=== PATIENT | female | born 1980 | race Caucasian/White ===

== ENCOUNTER 2016-07-03 13:46 | Emergency (ER) | payer MEDICARE, MEDICAID ==
--- NOTE | 2016-07-03 14:50 | EDM.PDOC ---
ED HPI GENERAL MEDICAL PROBLEM - General Chief Complaint: General Stated Complaint: DEHYDRATION,SHORTNESS OF REATH Time Seen by Provider: 07/03/16 14:32 Source of Information: Reports: Patient History Limitations: Reports: No limitations - History of Present Illness INITIAL COMMENTS - FREE TEXT/NARRATIVE: Patient presents with fatigue, cough and concern of dehydration. Two days ago she diagnosed with Influenza A and is now taking Tamiflu, Zithromax and Tessalon pearles. She says she has been sleeping most of the time and hasn't been drinking much fluids; a can of soda and a bottle of water today. She thinks she may have only urinated once today, she has regular stools daily. abdominal Pain Score (Numeric/FACES): 3 - Related Data Allergies Allergy/AdvReac Type Severity Reaction Status Date / Time morphine Allergy Unknown Headache Verified 07/03/16 14:19 ondansetron HCl Allergy Unknown Rash Verified 07/03/16 14:19 [From Zofran (as hydrochloride)] Penicillins Allergy Unknown Hives Verified 07/03/16 14:19 shellfish derived Allergy Unknown Hives Verified 07/03/16 14:19 Home Meds: Home Meds clonazePAM [Clonazepam] 2 mg PO BID 02/11/14 [History] Cyclobenzaprine [Flexeril] 10 mg PO TID PRN #30 tab 08/10/14 [Rx] QUEtiapine Fumarate [Quetiapine Fumarate] 500 mg PO BEDTIME 03/10/16 [History] ALPRAZolam [Alprazolam] 1 mg PO TID PRN 06/10/16 [History] Azithromycin [Zithromax] 1 tab PO DAILY 07/03/16 [History] Oseltamivir Phosphate [IJD: Tamiflu] 1 tab PO DAILY 07/03/16 [History] Past Medical History HEENT History: Reports: Impaired vision Cardiovascular History: Reports: Angina Respiratory History: Reports: SOB Gastrointestinal History: Reports: Chronic constipation, Hemorrhoids 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: 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 History: Reports: Other (see below) Other 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 History: occipital neuralgia, fractured pelvis 10 yrs ago Neurological History: Reports: Concussion, Migraines, Other (see below) Other Neuro History: encephalitis Psychiatric History: Reports: Anxiety, Depression, Panic attack, Psych Hospitalization(s), PTSD, Suicide attempt Oncologic (Cancer) History: Reports: Ovarian - Past Surgical History HEENT Surgical History: Reports: Tonsillectomy Cardiovascular Surgical History: Reports: None Respiratory Surgical History: Reports: None GI Surgical History: Reports: None Female Surgical History: Reports: Hysterectomy Oncologic Surgical History: Reports: Other (see below) Other Oncologic Surgeries/Procedures: hysterectomy Social & Family History - Family History HEENT: Reports: None Cardiac: Reports: [place] Oncologic: Reports: Lung - Tobacco Use Smoking Status *Q: Current Every Day Smoker Years of Tobacco use: 15 Packs/Tins Daily: 1 Used Tobacco, but Quit: No Second Hand Smoke Exposure: Yes - Caffeine Use Caffeine Use: Reports: Soda Other Caffeine Use: 72 ounces per day - Alcohol Use Days Per Week of Alcohol Use: 0 - Recreational Drug Use Recreational Drug Use: No Drug Use in Last 12 Months: Yes Recreational Drug Type: Reports: Marijuana/Hashish Recreational Drug Use Frequency: Rarely ED ROS GENERAL - Review of Systems Review Of Systems: See Below Constitutional: Reports: malaise, fatigue. Denies: fever, chills HEENT: Denies: Throat pain, Vision change Respiratory: Reports: cough. Denies: shortness of breath, sputum Cardiovascular: Denies: Chest pain, Syncope GI/Abdominal: Reports: Abdominal pain (some general cramping pain at times), Decreased appetite. Denies: Diarrhea, Vomiting : Denies: discharge, dysuria, flank pain, frequency, pain, urgency 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: Reports: no symptoms Skin: Denies: cyanosis, jaundice, mottled, pallor, diaphoresis, dryness Neurological: Denies: confusion, dizziness, headache Psychiatric: Denies: Agitation, Anxiety, Confusion ED EXAM, GENERAL - Physical Exam Exam: See Below Exam Limited By: No limitations General Appearance: alert, WD/WN, no apparent distress Eye Exam: bilateral eye: EOMI, normal inspection, PERRL Ears: normal external exam, hearing grossly normal Nose: normal inspection, normal mucosa. No: nasal flaring Throat/Mouth: Normal inspection, Normal lips, Normal oropharynx, Normal voice, No airway compromise Head: atraumatic, normocephalic Neck: full range of motion Respiratory/Chest: no respiratory distress, lungs clear, normal breath sounds, no accessory muscle use. No: crackles, rales, rhonchi, wheezing, stridor Cardiovascular: normal peripheral pulses, regular rate, rhythm, no murmur GI/Abdominal: normal bowel sounds, soft, non tender, no organomegaly, no distention Extremities: normal inspection, normal range of motion Neurological: alert, oriented, normal cognition, no motor/sensory deficits Psychiatric: normal affect, normal mood Skin Exam: Warm, Dry (normal turgor without sign of dehydration), Intact, Normal color, No rash Course - Vital Signs Last Recorded V/S: Last Vital Signs Temp 98.6 F 07/03/16 14:20 Pulse 89 07/03/16 14:20 Resp 16 07/03/16 14:20 BP 135/74 07/03/16 14:20 Pulse Ox 96 07/03/16 14:20 - Re-Assessments/Exams Free Text/Narrative Re-Assessment/Exam: 07/03/16 14:47 Patient remained stable throughout ER course. After thorough evaluation and discussion, I see no evidence of significant dehydration, but urged patient to try to drink more water so she can avoid it. She agreed. Pt discharged in stable condition. Departure - Departure Time of Disposition: 14:43 Disposition: Home, Self-Care 01 Condition: good Clinical Impression: Influenza A, Bronchitis Instructions: Influenza, Adult, [id number] Forms: ED Department Discharge Additional Instructions: 1. Drink 6-8 cups of water daily is we discussed. 2. Try to get plenty of rest and keep warm. You may use Ibuprofen or Tylenol for fever if needed. 3. Follow up with your PCP in a week if not resolving.
== END 2016-07-03 14:55 | disposition home or self-care (01) ==
LOC: KA.ED 13:46
CPT/HCPCS: 99282; 99283

== ENCOUNTER 2017-04-24 19:42 | Emergency (ER) | payer MEDICARE, MEDICAID ==
[2017-04-24] MEDS ORDERED: Sodium Chloride 0.9% 1,000 ML IV ONE (19:59)
[2017-04-24] MEDS ORDERED: Sodium Chloride 0.9% 5 ML Syringe FLUSH PRN (19:59)
[2017-04-24] MEDS ORDERED: Sodium Chloride 0.9% 1,000 ML ONE (20:01)
[2017-04-24] MEDS ORDERED: Metoclopramide 10 MG/2 ML SDV IVPUSH ONE (20:12)
[2017-04-24] MEDS ORDERED: methylPREDNISolone Sodium Succinate 125 MG/2 ML SDV IVPUSH ONE (20:12)
[2017-04-24] MEDS ORDERED: Ketorolac 30 MG/ML SDV IVPUSH ONE (20:12)
--- NOTE | 2017-04-24 20:18 | EDM.PDOC ---
ED HPI GENERAL MEDICAL PROBLEM - General Chief Complaint: General Stated Complaint: MIGRAINE Time Seen by Provider: 04/24/17 20:12 Source of Information: Reports: Patient History Limitations: Reports: No Limitations - History of Present Illness INITIAL COMMENTS - FREE TEXT/NARRATIVE: Patient is a 36-year-old female who presents to emergency department this evening with a complaint of migraine headache. Patient states that it's been going on for 3 days and not relieved with Imitrex. Patient states it is similar to prior migraines, and does have chronic history of migraines which occur every other month. Patient requested narcotics and is allergic to morphine, but Dilaudid seems to work. Patient has a extensive history of depression and bipolar. Patient denies fever, neck stiffness, chest pain, shortness of breath, nausea, vomiting, diarrhea, out of country travel, or any trauma. 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) - Related Data Allergies Allergy/AdvReac Type Severity Reaction Status Date / Time morphine Allergy Unknown Headache Verified 04/24/17 19:51 ondansetron HCl Allergy Unknown Rash Verified 04/24/17 19:51 [From Zofran (as hydrochloride)] Penicillins Allergy Unknown Hives Verified 04/24/17 19:51 shellfish derived Allergy Unknown Hives Verified 04/24/17 19:51 Home Meds: Home Meds clonazePAM [Clonazepam] 2 mg PO BID 02/11/14 [History] Cyclobenzaprine [Flexeril] 10 mg PO TID PRN #30 tab 08/10/14 [Rx] QUEtiapine Fumarate [Quetiapine Fumarate] 700 mg PO BEDTIME 03/10/16 [History] ALPRAZolam [Alprazolam] 1 mg PO TID PRN 06/10/16 [History] ClonazePAM [KlonoPIN] 2 mg PO BID 04/24/17 [History] Eszopiclone [Lunesta] 2 mg PO BEDTIME 04/24/17 [History] Haloperidol [Haldol] 2 mg PO TID 04/24/17 [History] SUMAtriptan Succinate [Imitrex] 50 mg PO Q4HR PRN 04/24/17 [History] Past Medical History HEENT History: Reports: Impaired Vision Cardiovascular History: Reports: Angina Respiratory History: Reports: SOB Gastrointestinal History: Reports: Chronic Constipation, Hemorrhoids 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: 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 History: Reports: Other (See Below) Other 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 History: occipital neuralgia, fractured pelvis 10 yrs ago Neurological History: Reports: Concussion, Migraines, Other (See Below) Other Neuro History: encephalitis Psychiatric History: Reports: Anxiety, Depression, Panic Attack, Psych Hospitalization(s), PTSD, Suicide Attempt Oncologic (Cancer) History: Reports: Ovarian - Past Surgical History Oncologic Surgical History: Reports: Other (See Below) Social & Family History - Family History HEENT: Reports: None Cardiac: Reports: [place] Oncologic: Reports: Lung - Tobacco Use Smoking Status *Q: Current Every Day Smoker Years of Tobacco use: 15 Packs/Tins Daily: 1 Used Tobacco, but Quit: No Second Hand Smoke Exposure: Yes - Caffeine Use Caffeine Use: Reports: Soda Other Caffeine Use: 72 ounces per day - Alcohol Use Days Per Week of Alcohol Use: 0 - Recreational Drug Use Recreational Drug Use: No Drug Use in Last 12 Months: Yes Recreational Drug Type: Reports: Marijuana/Hashish Recreational Drug Use Frequency: Rarely ED ROS GENERAL - Review of Systems Review Of Systems: ROS reveals no pertinent complaints other than HPI. Constitutional: Reports: No Symptoms HEENT: Reports: No Symptoms Respiratory: Reports: No Symptoms Cardiovascular: Reports: No Symptoms Endocrine: Reports: No Symptoms GI/Abdominal: Reports: No Symptoms : Reports: No Symptoms 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: Reports: No Symptoms Skin: Reports: No Symptoms Neurological: Reports: Headache Psychiatric: Reports: Anxiety Hematologic/Lymphatic: Reports: No Symptoms Immunologic: Reports: No Symptoms ED EXAM, GENERAL - Physical Exam Exam: See Below Exam Limited By: No Limitations General Appearance: Alert, WD/WN, Anxious, Mild Distress Eye Exam: Bilateral Eye: Normal Inspection Nose: Normal Inspection, Normal Mucosa, No Blood Throat/Mouth: Normal Inspection, Normal Oropharynx, No Airway Compromise Head: Atraumatic, Normocephalic Neck: Normal Inspection, Supple, Non-Tender, Full Range of Motion. No: Lymphadenopathy (L), Lymphadenopathy (R) Respiratory/Chest: No Respiratory Distress, Lungs Clear, Normal Breath Sounds, No Accessory Muscle Use, Chest Non-Tender Cardiovascular: Regular Rate, Rhythm, No Murmur GI/Abdominal: Normal Bowel Sounds, Soft, Non-Tender Extremities: Normal Inspection, No Pedal Edema Neurological: Alert, Oriented, CN II-XII Intact, Normal Cognition Psychiatric: Anxious Skin Exam: Warm, Dry, Intact, Normal Color, No Rash Lymphatic: No Adenopathy Course - Orders/Labs/Meds Orders: Active Orders 24 hr Category Date Time Status Ketorolac [Toradol] Med 04/24/17 20:12 Once 30 mg IVPUSH ONETIME ONE Metoclopramide [Reglan] Med 04/24/17 20:12 Once 10 mg IVPUSH ONETIME ONE Sodium Chloride 0.9% [Normal Saline] 1,000 ml Med 04/24/17 19:59 Active IV .BOLUS Sodium Chloride 0.9% [Syrex Flush] Med 04/24/17 19:59 Active 5 ml FLUSH Q8HR PRN methylPREDNISolone Sod Succ [Solu-MEDROL] Med 04/24/17 20:12 Once 125 mg IVPUSH ONETIME ONE Saline Lock Insert [OM.PC] Routine Oth 04/24/17 19:59 Ordered Medication Orders Sodium Chloride (Normal Saline) 1,000 mls @ 999 mls/hr IV .BOLUS ONE Stop: 04/24/17 20:59 Sodium Chloride (Syrex Flush) 5 ml FLUSH Q8HR PRN PRN Reason: Keep Vein Open Meds: Medications Generic Name Dose Route Start Last Admin Trade Name Freq PRN Reason Stop Dose Admin Sodium Chloride 1,000 mls @ 999 mls/hr 04/24/17 19:59 Normal Saline IV 04/24/17 20:59 .BOLUS ONE Sodium Chloride 5 ml 04/24/17 19:59 Syrex Flush FLUSH Q8HR PRN Keep Vein Open Discontinued Medications Generic Name Dose Route Start Last Admin Trade Name Freq PRN Reason Stop Dose Admin Sodium Chloride Confirm 04/24/17 20:01 Normal Saline Administered 04/24/17 20:02 Dose 1,000 mls @ as directed .ROUTE .[facility] ONE - Re-Assessments/Exams Free Text/Narrative Re-Assessment/Exam: 04/24/17 20:58 Patient afebrile, nontoxic appearing, vital signs stable. Headache is somewhat relieved. Patient will follow-up with her PCP Departure - Departure Time of Disposition: 21:00 Disposition: Home, Self-Care 01 Condition: Good Clinical Impression: Anxiety Migraine Qualifiers: Migraine type: unspecified Status migrainosus presence: without status migrainosus Intractability: not intractable Qualified Code(s): G43.909 - Migraine, unspecified, not intractable, without status migrainosus - Discharge Information Instructions: Migraine Headache, [id number] Referrals: PCP,Not In Area [Primary Care Provider] - Additional Instructions: Follow-up with primary care provider in next 1-2 days. Continue Imitrex as directed. - My Orders Last 24 Hours: My Active Orders 04/24/17 19:59 Sodium Chloride 0.9% [Normal Saline] 1,000 ml IV .BOLUS Sodium Chloride 0.9% [Syrex Flush] 5 ml FLUSH Q8HR PRN Saline Lock Insert [OM.PC] Routine 04/24/17 20:12 Ketorolac [Toradol] 30 mg IVPUSH ONETIME ONE Metoclopramide [Reglan] 10 mg IVPUSH ONETIME ONE methylPREDNISolone Sod Succ [Solu-MEDROL] 125 mg IVPUSH ONETIME ONE - Assessment/Plan Last 24 Hours: My Active Orders 04/24/17 19:59 Sodium Chloride 0.9% [Normal Saline] 1,000 ml IV .BOLUS Sodium Chloride 0.9% [Syrex Flush] 5 ml FLUSH Q8HR PRN Saline Lock Insert [OM.PC] Routine 04/24/17 20:12 Ketorolac [Toradol] 30 mg IVPUSH ONETIME ONE Metoclopramide [Reglan] 10 mg IVPUSH ONETIME ONE methylPREDNISolone Sod Succ [Solu-MEDROL] 125 mg IVPUSH ONETIME ONE Assessment:: Migraine headache Plan: Follow-up with PCP
[2017-04-24 20:35] VITALS: BP 145/78
== END 2017-04-24 21:07 | disposition home or self-care (01) ==
LOC: KA.ED 19:42
DX: G43.909 Migraine, unspecified, not intractable, without status migrainosus (principal); F41.9 Anxiety disorder, unspecified; Z88.5 Allergy status to narcotic agent; Z88.8 Allergy status to other drugs, medicaments and biological substances; Z88.0 Allergy status to penicillin; Z91.013 Allergy to seafood; Z79.899 Other long term (current) drug therapy; F31.9 Bipolar disorder, unspecified; F17.210 Nicotine dependence, cigarettes, uncomplicated
CPT/HCPCS: 96361; 96374; 96375; 99283; J1885; J2765; J2930; J7030

== ENCOUNTER 2017-05-23 18:06 | Emergency (ER) | payer MEDICARE, MEDICAID ==
[2017-05-23 18:36] VITALS: BP 143/91
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
[2017-05-23] MEDS ORDERED: Ketorolac 30 MG/ML SDV IM ONE (19:48)
[2017-05-23 20:02] LABS: CHLORIDE,CL 109 mmol/L (98-115); SODIUM,NA 146 mmol/L (136-145)
== END 2017-05-23 21:35 ==
LOC: KA.ED 18:06
DX: R45.851 Suicidal ideations (principal); Z88.5 Allergy status to narcotic agent; Z88.0 Allergy status to penicillin; Z91.013 Allergy to seafood; Z79.899 Other long term (current) drug therapy; F17.210 Nicotine dependence, cigarettes, uncomplicated; Z91.5 Personal history of self-harm
CPT/HCPCS: 36415; 80048; 80305; 81001; 85025; 99285; G0480

== ENCOUNTER 2017-06-11 20:37 | Emergency (ER) | payer MEDICARE, MEDICAID ==
[2017-06-11 20:49] VITALS: BP 105/66
[2017-06-11] MEDS ORDERED: ALPRAZolam 0.25 MG Tab PO ONE (21:12)
[2017-06-11] MEDS ORDERED: ClonazePAM 0.5 MG Tab PO ONE (21:12)
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
[2017-06-11] MEDS ORDERED: ALPRAZolam 0.25 MG Tab ONE ×2 (21:24→21:27)
[2017-06-11] MEDS ORDERED: Ondansetron 4 MG Tab.DIS ONE (21:27)
[2017-06-11] MEDS ORDERED: Ondansetron 4 MG Tab.DIS PO ONE (21:30)
[2017-06-11] MEDS: ALPRAZolam 0.25 MG Tab PO SCH ×2 (21:30→23:26)
[2017-06-11] MEDS ORDERED: ClonazePAM 0.5 MG Tab ONE (21:53)
== END 2017-06-11 21:38 | disposition home or self-care (01) ==
LOC: KA.ED 20:37
DX: F41.9 Anxiety disorder, unspecified (principal); Z76.0 Encounter for issue of repeat prescription; F17.210 Nicotine dependence, cigarettes, uncomplicated; Z88.5 Allergy status to narcotic agent; Z88.0 Allergy status to penicillin; Z91.013 Allergy to seafood
CPT/HCPCS: 99282; A9270-GY